=== PATIENT | male | born 1940 | race American Indian/Alaskan Native ===

== ENCOUNTER 2017-12-18 07:48 | Outpatient (CLI) | payer MEDICARE ==
[2017-12-18 08:45] LABS: Blood Urea Nitrogen 26 mg/dL (9-20)
--- NOTE | 2017-12-18 14:06 | Cat Scan Report ---
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 TECHNIQUE: Multiple contiguous axial images were obtained from the lung bases through the ankles after administration of IV contrast. Reformatted sagittal and coronal images were available for review. 3D reconstruction of the vascular structures was also performed. FINDINGS: Vasculature: Abdominal aorta is normal in caliber without evidence of aneurysm. There are scattered atherosclerotic plaques and calcifications. The celiac axis and superior mesenteric artery are patent. There is atherosclerotic plaque at the origins of the bilateral renal arteries, without stenosis. There are atherosclerotic plaques and calcifications of the right iliac artery without stenosis. The right external and internal iliac arteries are patent. There is scattered plaque and calcification of the right common femoral artery. The right superficial and performed a branch femoral arteries are patent and normal in caliber. There are scattered atherosclerotic plaques of the distal right superficial femoral artery and the proximal popliteal artery, causing less than 50 percent stenosis. There is normal triple-vessel flow into the ankle. There are atherosclerotic plaques and calcifications of the left iliac artery without stenosis. The left external and internal iliac arteries are patent. There are atherosclerotic plaques and calcifications of the left common femoral artery. The profunda branches patent. There are scattered atherosclerotic plaques and calcifications of the distal left superficial femoral artery with less than 50 percent stenosis. The left popliteal artery is patent. There is mild plaquing calcification at the tibioperoneal trunk. There is normal triple-vessel flow into the ankle. Lung bases: Normal. Visualized heart and mediastinum: Normal. Liver: Normal. Spleen: Normal. Pancreas: Normal. Gallbladder and Biliary Tree: There is a 9 millimeter calcified gallstone. No pericholecystic fluid or gallbladder wall thickening. Adrenal glands: Normal. Kidneys: Symmetric enhancement to both kidneys. No hydronephrosis. Bladder: Normal. Pelvic organs: Normal prostate gland and seminal vesicles. Bowel: No focal wall thickening. No evidence of obstruction. The appendix is normal in caliber without surrounding inflammatory change. Peritoneum: No significant mesenteric adenopathy. No free air or free fluid. Bones and soft tissues: No suspicious osseous lesions. No acute fracture or dislocation. There is normal bone mineral density. There are small, fat containing bilateral inguinal hernias. There is a large right hydrocele and a small left hydrocele. IMPRESSION: 1. Scattered atherosclerotic plaques and calcifications of the abdominal aorta without evidence of dissection or aneurysm. 2. Scattered atherosclerotic plaques of the arteries of the bilateral lower extremities without significant stenosis. Normal triple-vessel flow into the bilateral ankles. 3. Cholelithiasis without evidence for cholecystitis. 4. Large right hydrocele and small left hydrocele. 5. Small, fat containing bilateral inguinal hernias.
== END 2017-12-18 07:49 | disposition home or self-care (01) ==
LOC: CT 07:48
PROVIDERS: ATTEND Radiology Diagnostic Radiology
DX: I70.213 Atherosclerosis of native arteries of extremities with intermittent claudication, bilateral legs (principal); K80.20 Calculus of gallbladder without cholecystitis without obstruction; K40.20 Bilateral inguinal hernia, without obstruction or gangrene, not specified as recurrent; I87.1 Compression of vein; I71.4 Abdominal aortic aneurysm, without rupture; N43.3 Hydrocele, unspecified; I70.0 Atherosclerosis of aorta
CPT/HCPCS: 36415; 75635; 82565; 84520; Q9967